=== PATIENT | male | born 1930 | race Caucasian/White ===

== ENCOUNTER 2017-12-09 15:05 | Inpatient (IN) | payer MEDICARE ==
[2017-12-09] MEDS ORDERED: Ondansetron 4 MG/2 ML SDV IV PRN (15:56)
[2017-12-09] MEDS ORDERED: Acetaminophen/HYDROcodone 325-5 MG Tab PO PRN (15:56)
[2017-12-09] MEDS ORDERED: Magnesium Hydroxide 400 MG/5 ML Susp 30 ML Cup PO PRN (15:56)
[2017-12-09] MEDS ORDERED: Acetaminophen 325 MG Tab PO PRN (15:56)
[2017-12-09] MEDS ORDERED: Sodium Chloride 0.9% 10 ML Syringe FLUSH PRN (15:56)
[2017-12-09] MEDS ORDERED: Temazepam 15 MG Cap PO PRN (15:56)
[2017-12-09] MEDS ORDERED: Calcium Carbonate 500 MG Tab.Chew PO PRN (16:03)
[2017-12-09] MEDS ORDERED: ZINC 50 MG PO PRN (16:05)
[2017-12-09] MEDS: fentaNYL 100 MCG/2 ML SDV IVPUSH PRN (16:22)
[2017-12-09 16:31] LABS: CHLORIDE,CL 104 mEq/L (98-106); SODIUM,NA 141 mEq/L (136-145)
[2017-12-09] MEDS: Enoxaparin 30 MG/0.3 ML Syringe SUBCUT SCH (16:50)
[2017-12-10] MEDS: fentaNYL 100 MCG/2 ML SDV IVPUSH PRN (05:41)
[2017-12-10] MEDS: Cholecalciferol (Vitamin D3) 1,000 Unit Tab PO SCH (07:45)
[2017-12-10] MEDS: Calcium Carbonate/Magnesium Oxide/Zinc Oxide Tab PO SCH (07:46)
[2017-12-10] MEDS: Allopurinol 300 MG Tab PO SCH (07:46)
[2017-12-10] MEDS: Lisinopril 10 MG Tab PO SCH (07:46)
--- NOTE | 2017-12-10 08:17 | PCM.PN ---
- General Info Date of Service: 12/10/17 Admission Dx/Problem (Free Text): Low Back pain Subjective Update: Patient reports his pain has been well controlled. He reports that he continues to have pain with movement. Reports his pain is better when he is lying still. Reports pain is localized to his lower back. Denies radiation of pain to legs. Denies any numbness or tingling. Reports he has been up ambulating to bathroom with walker. Has been using IV fentanyl. Reports he asked for a dose this morning. He has not yet worked with physical therapy. Functional Status: Reports: Pain Controlled, Tolerating Diet, Ambulating, Urinating. Denies: New Symptoms - Review of Systems General: Reports: No Symptoms. Denies: Fever, Weakness, Fatigue Pulmonary: Reports: No Symptoms. Denies: Shortness of Breath, Cough, Sputum Cardiovascular: Reports: No Symptoms. Denies: Chest Pain, Dyspnea on Exertion, Lightheadedness Gastrointestinal: Reports: No Symptoms. Denies: Abdominal Pain, Constipation, Decreased Appetite, Diarrhea, Hematochezia, Melena, Nausea Genitourinary: Reports: No Symptoms Musculoskeletal: Reports: Back Pain. Denies: Neck Pain, Leg Pain Neurological: Reports: No Symptoms. Denies: Confusion, Dizziness, Headache, Numbness, Tingling, Gait Disturbance Psychiatric: Reports: No Symptoms - Patient Data Vitals - Most Recent: Last Vital Signs Temp 97.9 F 12/10/17 07:49 Pulse 55 L 12/10/17 07:49 Resp 20 12/10/17 07:49 BP 124/56 L 12/10/17 07:49 Pulse Ox 97 12/10/17 07:49 Weight - Most Recent: 188 lb Lab Results Last 24 Hours: Laboratory Results - last 24 hr 12/09/17 12/09/17 12/09/17 Range/Units 16:12 16:12 16:12 WBC 8.7 (5.0-10.0) 10^3/uL RBC 3.94 L (4.50-6.00) 10^6/uL Hgb 12.4 L (14.0-18.0) g/dL Hct 37.0 L (40.0-54.0) % MCV 93.9 (82.0-94.0) fL MCH 31.5 (27.0-32.0) pg MCHC 33.5 (33.0-38.0) g/dL RDW Coeff of Jose 13.1 (11.0-15.0) % Plt Count 187 (150-400) 10^3/uL Neut % (Auto) 71.9 (35-85) % Lymph % (Auto) 18.1 (10-55) % [place] % (Auto) 8.4 (0-16) % Eos % (Auto) 1.4 (0-5) % Baso % (Auto) 0.2 (0-3) % Neut # (Auto) 6.29 (1.80-7.00) 10^3/uL Lymph # (Auto) 1.58 (1.00-4.80) 10^3/uL [place] # (Auto) 0.73 (0.00-0.80) 10^3/uL Eos # (Auto) 0.12 (0.00-0.45) 10^3/uL Baso # (Auto) 0.02 10^3/uL ESR 18 H (0-15) mm/hr Sodium 141 (136-145) mEq/L Potassium 3.8 (3.5-5.0) mEq/L Chloride 104 (98-106) mEq/L Carbon Dioxide 30 (21-32) mmol/L BUN 17 (7-18) mg/dL Creatinine 1.2 (0.7-1.3) mg/dL Est Cr Clr Drug Dosing 49.40 mL/min Estimated GFR (MDRD) 58 L (>=60) mL/min Glucose 119 H (75-99) mg/dL Calcium 11.5 H (8.4-10.1) mg/dL Magnesium 1.7 L (1.8-2.4) mg/dL Total Bilirubin 0.5 (0.0-1.0) mg/dL AST 24 (15-37) U/L ALT 26 (12-78) U/L Alkaline Phosphatase 53 (46-116) U/L C-Reactive Protein < 0.2 L (0.2-0.8) mg/dL Total Protein 6.9 (6.4-8.2) g/dL Albumin 3.5 (3.4-5.0) g/dL TSH, Ultra Sensitive (0.36-5.60) uIU/mL Urine Color (YELLOW) Urine Appearance (CLEAR) Urine pH (4.5-8.0) Ur Specific [place] (1.003-1.020) Urine Protein (NEGATIVE) mg/dL Urine Glucose (UA) (NEGATIVE) mg/dL Urine Ketones (NEGATIVE) mg/dL Urine Occult Blood (NEGATIVE) Urine Nitrite (NEGATIVE) Urine Bilirubin (NEGATIVE) Urine Urobilinogen (0.2-1.0) EU/dL Ur Leukocyte Esterase (NEGATIVE) Urine RBC (0-5) /HPF Urine WBC (0-5) /HPF Amorphous Sediment (NOT SEEN) /HPF 12/09/17 12/09/17 Range/Units 16:12 16:45 WBC (5.0-10.0) 10^3/uL RBC (4.50-6.00) 10^6/uL Hgb (14.0-18.0) g/dL Hct (40.0-54.0) % MCV (82.0-94.0) fL MCH (27.0-32.0) pg MCHC (33.0-38.0) g/dL RDW Coeff of Jose (11.0-15.0) % Plt Count (150-400) 10^3/uL Neut % (Auto) (35-85) % Lymph % (Auto) (10-55) % [place] % (Auto) (0-16) % Eos % (Auto) (0-5) % Baso % (Auto) (0-3) % Neut # (Auto) (1.80-7.00) 10^3/uL Lymph # (Auto) (1.00-4.80) 10^3/uL [place] # (Auto) (0.00-0.80) 10^3/uL Eos # (Auto) (0.00-0.45) 10^3/uL Baso # (Auto) 10^3/uL ESR (0-15) mm/hr Sodium (136-145) mEq/L Potassium (3.5-5.0) mEq/L Chloride (98-106) mEq/L Carbon Dioxide (21-32) mmol/L BUN (7-18) mg/dL Creatinine (0.7-1.3) mg/dL Est Cr Clr Drug Dosing mL/min Estimated GFR (MDRD) (>=60) mL/min Glucose (75-99) mg/dL Calcium (8.4-10.1) mg/dL Magnesium (1.8-2.4) mg/dL Total Bilirubin (0.0-1.0) mg/dL AST (15-37) U/L ALT (12-78) U/L Alkaline Phosphatase (46-116) U/L C-Reactive Protein (0.2-0.8) mg/dL Total Protein (6.4-8.2) g/dL Albumin (3.4-5.0) g/dL TSH, Ultra Sensitive 1.77 (0.36-5.60) uIU/mL Urine Color Light yellow (YELLOW) Urine Appearance Clear (CLEAR) Urine pH 7.0 (4.5-8.0) Ur Specific [place] 1.015 (1.003-1.020) Urine Protein Negative (NEGATIVE) mg/dL Urine Glucose (UA) Negative (NEGATIVE) mg/dL Urine Ketones Negative (NEGATIVE) mg/dL Urine Occult Blood Negative (NEGATIVE) Urine Nitrite Negative (NEGATIVE) Urine Bilirubin Negative (NEGATIVE) Urine Urobilinogen 0.2 (0.2-1.0) EU/dL Ur Leukocyte Esterase Negative (NEGATIVE) Urine RBC Not seen (0-5) /HPF Urine WBC Not seen (0-5) /HPF Amorphous Sediment Occasional H (NOT SEEN) /HPF Med Orders - Current: Current Medications Acetaminophen (Tylenol) 650 mg PO Q4H PRN PRN Reason: Pain (Mild 1-3)/fever Hydrocodone Bitart/Acetaminophen ([place] 325-5 Mg) 1 - 2 tab PO Q6H PRN PRN Reason: Pain (moderate 4-6) Allopurinol (Zyloprim) 300 mg PO DAILY [facility] Last Admin: 12/10/17 07:46 Dose: 300 mg Bisoprolol Fumarate/HCTZ (Ziac 5-6.25 Mg) 1 tab PO DAILY [facility] Last Admin: 12/10/17 07:45 Dose: 1 tab Calcium Carbonate/Glycine (Tums) 500 mg PO QID PRN PRN Reason: Dyspepsia Calcium/Magnesium/Zinc (Calcium & Magnesium Plus Zinc) 1 tab PO DAILY [facility] Last Admin: 12/10/17 07:46 Dose: 1 tab Cholecalciferol (Vitamin D3) 5,000 units PO DAILY [facility] Last Admin: 01/18/18 07:45 Dose: 5,000 units Enoxaparin Sodium (Lovenox) 30 mg SUBCUT Q24H [facility] Last Admin: 12/09/17 16:50 Dose: 30 mg Fentanyl (Sublimaze) 50 mcg IVPUSH Q12H PRN PRN Reason: Severe pain (7 - 10) Last Admin: 12/10/17 05:41 Dose: 50 mcg Lisinopril (Prinivil) 10 mg PO DAILY [facility] Last Admin: 12/10/17 07:46 Dose: 10 mg Magnesium Hydroxide (Milk Of Magnesia) 30 ml PO Q12H PRN PRN Reason: Constipation Magnesium Oxide (Magnesium Oxide) 500 mg PO DAILY [facility] Last Admin: 12/10/17 07:45 Dose: 500 mg Non-Formulary Medication (Zinc [Zinc]) 50 mg PO DAILY PRN PRN Reason: Other Ondansetron HCl (Zofran) 4 mg IV Q6H PRN PRN Reason: Nausea/Vomiting Sodium Chloride (Saline Flush) 10 ml FLUSH ASDIRECTED PRN PRN Reason: Keep Vein Open Temazepam (Restoril) 15 mg PO BEDTIME PRN PRN Reason: Sleep - Exam Quality Assessment: DVT Prophylaxis General: Alert, Oriented Neck: Supple Lungs: Clear to Auscultation, Normal Respiratory Effort Cardiovascular: Regular Rate, Regular Rhythm Back Exam: Normal Inspection, Decreased Range of Motion, Vertebral Tenderness ( sacral area) Extremities: Normal Inspection, Normal Range of Motion, Non-Tender, No Pedal Edema, Normal Capillary Refill Peripheral Pulses: 2+: Dorsalis Pedis (L), Dorsalis Pedis (R) Skin: Warm, Dry, Intact Neurological: No New Focal Deficit - Problem List & Annotations (1) Back pain, lumbosacral SNOMED Code(s): 070050425 Code(s): M54.5 - LOW BACK PAIN Status: Acute Priority: High Current Visit: Yes - Problem List Review Problem List Initiated/Reviewed/Updated: Yes - My Orders Last 24 Hours: My Active Orders 12/09/17 15:05 Patient Status [ADT] Routine 12/09/17 15:56 Oxygen Therapy [RC] .PRN Up With Assistance [RC] .PRN Vital Signs [RC] 0800,2000 PT Evaluation and Treatment [CONS] Routine Chest 2V [CR] Routine Acetaminophen [Tylenol] 650 mg PO Q4H PRN Acetaminophen/HYDROcodone [[place] 325-5 MG] 1 - 2 tab PO Q6H PRN Magnesium Hydroxide [Milk of Magnesia] 30 ml PO Q12H PRN Ondansetron [Zofran] 4 mg IV Q6H PRN Sodium Chloride 0.9% [Saline Flush] 10 ml FLUSH ASDIRECTED PRN Temazepam [Restoril] 15 mg PO BEDTIME PRN Saline Lock Insert [OM.PC] Routine Resuscitation Status Routine 12/09/17 16:00 Enoxaparin [Lovenox] 30 mg SUBCUT Q24H 12/09/17 16:03 Calcium Carbonate [Tums] 500 mg PO QID PRN fentaNYL [Sublimaze] 50 mcg IVPUSH Q12H PRN 12/09/17 16:04 Lumbar Spine 2 or 3V [CR] Routine 12/09/17 16:05 Zinc [Zinc] 50 mg PO DAILY PRN 12/09/17 Dinner Regular Diet [DIET] 12/10/17 08:00 Allopurinol [Zyloprim] 300 mg PO DAILY Bisoprolol/Hydrochlorothiazide [Ziac 5-6.25 MG] 1 tab PO DAILY Calcium/Magnesium/Zinc [Calcium & Magnesium plus Zinc] 1 tab PO DAILY Cholecalciferol (Vitamin D3) [Vitamin D3] 5,000 units PO DAILY Lisinopril [Prinivil] 10 mg PO DAILY Magnesium Oxide 500 mg PO DAILY - Plan Plan:: Patient will be seen by physical therapy today. 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 There is mild loss of disc height and marginal osteophyte formation throughout. Continue oral pain medications with IV pain medications for breakthrough pain. Awaiting MRI of lumbar spine Will see how patient does with physical therapy to determine readiness for discharge.
[2017-12-10] MEDS: Enoxaparin 30 MG/0.3 ML Syringe SUBCUT SCH (16:03)
[2017-12-11 07:27] VITALS: BP 129/58
[2017-12-11] MEDS: Cholecalciferol (Vitamin D3) 1,000 Unit Tab PO SCH (08:05)
[2017-12-11] MEDS: Lisinopril 10 MG Tab PO SCH (08:05)
[2017-12-11] MEDS: Calcium Carbonate/Magnesium Oxide/Zinc Oxide Tab PO SCH (08:05)
[2017-12-11] MEDS: Allopurinol 300 MG Tab PO SCH (08:06)
--- NOTE | 2017-12-11 09:22 | PCM.DCSUM1 ---
Discharge Summary - Hospital Course HPI Initial Comments: Jed is an 87 year old male who was admitted to the hospital from the clinic on 12/09/2017 for acute lumbosacral back pain. 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 Mild loss of disc height and marginal osteophyte formation throughout. Throughout hospital stay, patients pain was controlled with oral and IV pain medications. Patient worked with physical therapy. At time of discharge patient's pain was able to be controlled with oral pain medications. He reported pain worsened with movement, but felt he could manage pain at home. He is scheduled to have MRI of his lumbar spine. - Discharge Data Discharge Date: 12/11/17 Discharge Disposition: Home, Self-Care 01 Condition: Good - Discharge Diagnosis/Problem(s) (1) Back pain, lumbosacral SNOMED Code(s): 398410043 ICD Code: M54.5 - LOW BACK PAIN Status: Acute Priority: High - Patient Summary/Data Consults: Consultations 12/09/17 15:56 PT Evaluation and Treatment [CONS] Routine - Patient Instructions Diet: Usual Diet as Tolerated Activity: As Tolerated Notify Provider of: Increased Pain, Swelling and Redness - Discharge Plan Home Medications: Home Meds Allopurinol 300 mg PO DAILY 08/22/16 [History] Calcium Carb/D3/Magnesium/Zinc [Jax Mag Zinc + D3] 1 each PO DAILY 08/22/16 [ History] Lisinopril [Prinivil] 10 mg PO DAILY 08/22/16 [History] Magnesium Oxide [Magnesium] 500 mg PO DAILY 08/25/16 [History] Zinc 50 mg PO DAILY PRN 08/25/16 [History] Bisoprolol/Hydrochlorothiazide [Bisoprolol/HCTZ 5-6.25 MG] 1 tab PO DAILY [History] Cholecalciferol (Vitamin D3) [Vitamin D3] 5,000 units PO DAILY 12/09/17 [History ] Patient Handouts: Back Pain, Adult Referrals: Zohaib Johnson MD [Primary Care Provider] - - General Info Date of Service: 12/11/17 Admission Dx/Problem (Free Text: Low Back pain Functional Status: Reports: Pain Controlled, Tolerating Diet, Ambulating, Urinating. Denies: New Symptoms - Review of Systems General: Reports: No Symptoms. Denies: Fever, Weakness, Fatigue Pulmonary: Reports: No Symptoms. Denies: Shortness of Breath, Cough, Sputum Cardiovascular: Reports: No Symptoms. Denies: Chest Pain, Palpitations, Dyspnea on Exertion, Lightheadedness Gastrointestinal: Reports: No Symptoms Genitourinary: Reports: No Symptoms Musculoskeletal: Reports: Back Pain. Denies: Neck Pain, Leg Pain Neurological: Reports: No Symptoms - Patient Data Vitals - Most Recent: Last Vital Signs Temp 97.6 F 12/11/17 07:26 Pulse 63 12/11/17 07:26 Resp 16 12/11/17 07:26 BP 129/58 L 12/11/17 08:05 Pulse Ox 97 12/11/17 07:26 Weight - Most Recent: 188 lb Med Orders - Current: Current Medications Acetaminophen (Tylenol) 650 mg PO Q4H PRN PRN Reason: Pain (Mild 1-3)/fever Hydrocodone Bitart/Acetaminophen ([place] 325-5 Mg) 1 - 2 tab PO Q6H PRN PRN Reason: Pain (moderate 4-6) Last Admin: 12/10/17 16:05 Dose: 1 tab Allopurinol (Zyloprim) 300 mg PO DAILY [facility] Last Admin: 12/11/17 08:06 Dose: 300 mg Bisoprolol Fumarate/HCTZ ([place]iac 5-6.25 Mg) 1 tab PO DAILY [facility] Last Admin: 12/11/17 08:06 Dose: 1 tab Calcium Carbonate/Glycine (Tums) 500 mg PO QID PRN PRN Reason: Dyspepsia Calcium/Magnesium/Zinc (Calcium & Magnesium Plus Zinc) 1 tab PO DAILY [facility] Last Admin: 12/11/17 08:05 Dose: 1 tab Cholecalciferol (Vitamin D3) 5,000 units PO DAILY [facility] Last Admin: 12/11/17 08:05 Dose: 5,000 units Enoxaparin Sodium (Lovenox) 30 mg SUBCUT Q24H [facility] Last Admin: 12/10/17 16:03 Dose: 30 mg Fentanyl (Sublimaze) 50 mcg IVPUSH Q12H PRN PRN Reason: Severe pain (7 - 10) Last Admin: 12/10/17 05:41 Dose: 50 mcg Lisinopril (Prinivil) 10 mg PO DAILY [facility] Last Admin: 12/11/17 08:05 Dose: 10 mg Magnesium Hydroxide (Milk Of Magnesia) 30 ml PO Q12H PRN PRN Reason: Constipation Magnesium Oxide (Magnesium Oxide) 500 mg PO DAILY [facility] Last Admin: 12/10/17 07:45 Dose: 500 mg Non-Formulary Medication (Zinc [Zinc]) 50 mg PO DAILY PRN PRN Reason: Other Ondansetron HCl (Zofran) 4 mg IV Q6H PRN PRN Reason: Nausea/Vomiting Sodium Chloride (Saline Flush) 10 ml FLUSH ASDIRECTED PRN PRN Reason: Keep Vein Open Temazepam (Restoril) 15 mg PO BEDTIME PRN PRN Reason: Sleep - Exam General: Reports: Alert, Oriented Neck: Reports: Supple Lungs: Reports: Clear to Auscultation, Normal Respiratory Effort Cardiovascular: Reports: Regular Rate, Regular Rhythm GI/Abdominal Exam: Normal Bowel Sounds, Soft, Non-Tender, No Organomegaly, No Distention, No Abnormal Bruit, No Mass, Pelvis Stable Back Exam: Reports: Normal Inspection, Decreased Range of Motion. Denies: Paraspinal Tenderness, Vertebral Tenderness Extremities: Normal Inspection, Normal Range of Motion, Non-Tender, No Pedal Edema, Normal Capillary Refill Skin: Reports: Warm, Dry, Intact Neurological: Reports: No New Focal Deficit Psy/Mental Status: Reports: Alert, Normal Affect, Normal Mood *Q Meaningful Use (DIS) - VTE *Q VTE Criteria *Q: - Stroke *Q Stroke Criteria *Q: - AMI *Q AMI Criteria *Q:
== END 2017-12-11 10:30 | disposition home or self-care (01) | DRG 552 ==
LOC: CC.MS 15:05 → UNDOADMIN 15:10 → CC.MS 15:10
PROVIDERS: ADMIT General Practice; ATTEND General Practice
DX: M54.5 Low back pain (principal); E78.5 Hyperlipidemia, unspecified; M19.90 Unspecified osteoarthritis, unspecified site; E11.9 Type 2 diabetes mellitus without complications; I10 Essential (primary) hypertension; Z79.899 Other long term (current) drug therapy
CPT/HCPCS: 36415; 71046; 72100; 80053; 81001; 83735; 84443; 85025; 85651; 86140; 97032-GP; 97110-GP; 97161-GP; A9270-GY; J1650; J3010